=== PATIENT | female | born 2000 | race Caucasian/White ===

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

== ENCOUNTER 2023-06-04 23:42 | Emergency (ER) | payer OTHER, SELFPAY ==
[2023-06-04 23:48] VITALS: BP 121/69; PULSE 62; RESP 18; TEMP 36.6; O2SAT 98; BMI 28.6
[2023-06-05 01:58] VITALS: BP 110/63; PULSE 59; RESP 16; TEMP 36.7; O2SAT 100
--- NOTE | 2023-06-05 02:17 | ED_ITS ---
HPI - General Adult General Chief complaint: General Medical Stated complaint: Swoller lip due to piercing Time Seen by Provider: 06/05/23 02:17 Source: patient Mode of arrival: ambulatory Limitations: no limitations History of Present Illness HPI narrative: 22-year-old female who presents emergency department for evaluation of swelling of her upper lip. The patient had a upper lip piercing 2 weeks prior. She s tates that she has noted crusting around the inner lip insertion point. She states that today the lip became more swollen and she was unable to remove the piercing therefore she came to emergency department for evaluate. The patient states that she has not been ill in any other way. She denied fever, chills, shortness of breath, nausea, vomiting, difficulty swallowing. Related Data Previous Rx's Medication Instructions Recorded cephalexin 500 mg capsule 500 mg PO TID 7 days #21 caps 06/05/23 prednisone 20 mg tablet 60 mg (3 x 20 mg) PO DAILY 5 days 06/05/23 #15 tabs Allergies Allergy/AdvReac Type Severity Reaction Status Date / Time No Known Allergies Allergy Verified 06/04/23 23:51 Review of Systems Review of Systems: Yes all other systems are reviewed and are negative [facility] Past Medical History Attestation statement: The following information was validated with the patient. Physical Exam ED Vital Signs: Vital Signs - 24 hr 06/04/23 23:48 06/05/23 01:58 Temperature 98 F 98.0 F Pulse Rate 62 59 Respiratory Rate 18 16 Blood Pressure 121/69 110/63 Pulse Oximetry 98 100 Oxygen Delivery Method Room Air Room Air BMI result Body Mass Index 28.6 Vital signs were normal Exam General: Awake, alert in no distress Head: Normocephalic, atraumatic EENT: Patient's upper lip is swollen, there is a midline lip piercing but the inner lip portion is imbedded in the lip in cannot be visualized. Neck: Supple, no adenopathy, no trachea midline or C-spine tenderness Psych: Pleasant, very anxious, and tearful Medications Administered Discontinued Medications Generic Name Dose Route Start Last Admin Trade Name Freq PRN Reason Stop Dose Admin Lidocaine HCl 5 ml 06/05/23 02:20 06/05/23 02:44 Lidocaine Hcl 1 % Mpf 5 Ml Vial INFILTRATI 06/05/23 02:21 5 ml ONCE STA Administration Procedures Procedure Narrative Procedure Narrative: Upper lip piercing removal I did discuss the procedure with the patient she informed verbal consent to proceed. The inner lip insertion site was anesthetized with 1% lidocaine x3 cc. The inner lip piercing component was grasped with hemostats 10 the outer lip was grasped with a needle santoyo. I was able to untwist to the piercing and remove it without any difficulty. There is no purulent drainage. The patient tolerated the procedure well pain Medical Decision Making Medical Decision Making MDM Narrative: 22-year-old female who presents emergency department for evaluation of upper lip swelling secondary to a piercing that occurred 2 weeks prior, the swelling got worse prior to coming to emergency department. The patient had no systemic symptoms. The inner upper lip needed to be anesthetized that I could grasp the piercing components and removed the piercing. There was no purulent drainage. The patient will be treated with Keflex 500 mg 3 times a day for 7 days for infection, prednisone 60 mg once a day for 5 days for possible allergic reaction and Benadryl 25 mg every 6 hours as needed for itchiness. Patient was given printed and verbal instructions and discharged home Differential Diagnosis Differential Diagnoses: The differential diagnosis associated with the presentation includes Differential diagnosis includes was not limited to allergic reaction, infectious process Discharge Plan Discharge Clinical Impression: Swelling of upper lip Patient Disposition: Home, Self-Care Additional Instructions: The swelling of your upper lip is most likely caused by an allergic reaction to the piercing however an infection also needs be considered Take Keflex (cephalexin) 500 mg pills, 1 pill 3 times a day for 7 days. Take prednisone 20 mg pills, 3 pills once a day for 5 days. While you are taking prednisone, do not take any NSAIDs (Motrin, Advil, ibuprofen, Aleve, naproxen). You can also take Benadryl 25 mg pills, 1 pill 3 times a day to help reduce the swelling however this medication will make you sleepy, you cannot drive or work while your taking this medication. Please return to the emergency department if the lip is getting more swollen, if you developed fever, chills, the have any difficulty swallowing or breathing Follow-up with your doctor in 2 days. Please return to the emergency department if your symptoms get worse or if you develop any symptoms that are concerning to you. Prescriptions: New prednisone 20 mg tablet 60 mg PO DAILY 5 Days Qty: 15 0RF cephalexin 500 mg capsule 500 mg PO TID 7 Days Qty: 21 0RF
--- NOTE | 2023-06-05 02:25 | PC.NURSE ---
pt reported worsening lip swelling. iv established. Dr. Ross at bedside.
[2023-06-05] MEDS: Lidocaine HCl 1 % MPF 5 ML VIAL INFILTRATI (02:44)
--- OUTSIDE RECORDS SUMMARY | 2023-06-05 03:17 | XMS_ITS | Continuity of Care Document ---
Author Name Unknown Organization [facility] Address [address] [place] [address]- Care Team Providers Care Instant Powder Supervisor Name Role Phone Gloria Drake MD, V Primary Care Physician [phone] Encounter [facility] [place] Date(s): 01/27/23 - 02/03/23 [facility] [address] [place], [place] [address] Encounter Diagnosis Major depressive disorder, recurrent, moderate(Discharge Diagnosis) - 01/27/23 Attending Physician: Gloria Drake MD, V Allergies, Adverse Reactions, Alerts No Known Allergies Immunizations Given and Recorded Vaccine Date Status Refusal Reason Measles/Mumps/Rubella Virus Vaccine 1 01/05/04 Giv en Haemophilus B Conj Vaccine (oldterm) 2 01/05/04 Gi mary jo Haemophilus B Conj Vaccine (oldterm) 3 05/18/03 Gi mary jo Haemophilus B Conj Vaccine (oldterm) 4 01/30/03 Gi mary jo Haemophilus B Conj Vaccine (oldterm) 5 02 Gi mary jo diphtheria/tetanus/pertussis, acel(DTaP) 6 01/05/04 Given diphtheria/tetanus/pertussis, acel(DTaP) 7 05/18/03 Given diphtheria/tetanus/pertussis, acel(DTaP) 8 01/30/03 Given diphtheria/tetanus/pertussis, acel(DTaP) 9 02 Given Varicella Virus Vaccine 10 10/09/03 Given Hepatitis B Vaccine (old term) 11 10/09/03 Given Hepatitis B Vaccine (old term) 12 02 Given Hepatitis B Vaccine (old term) 13 02 Given Poliovirus Vaccine, Inactivated 14 10/09/03 Given Poliovirus Vaccine, Inactivated 15 01/30/03 Given Poliovirus Vaccine, Inactivated 16 02 Given Pneumococcal Conjugate (PCV7) (oldterm) 17 05/18/03 Given Pneumococcal Conjugate (PCV7) (oldterm) 18 01/30/03 Given Pneumococcal Conjugate (PCV7) (oldterm) 19 02 Given 1Admin Note: MMR 2Admin Note: HIB 3Admin Note: HIB 4Admin Note: HIB 5Admin Note: HIB 6Admin Note: DTAP 7Admin Note: DTAP 8Admin Note: DTAP 9Admin Note: DTAP 10Admin Note: BEENA 11Admin Note: HEP B 12Admin Note: HEP B 13Admin Note: HEP B 14Admin Note: IPV/OPV 15Admin Note: IPV/OPV 16Admin Note: IPV/OPV 17Admin Note: PCV7 18Admin Note: PCV7 19Admin Note: PCV7 Medications escitalopram 10 mg oral tablet 1 tablet = 10 mg, By Mouth, Daily, # 30 tablet, 2 Refills, Maintenance, 01/27/23 14:56:00 EDT, Tablet, [facility], Partial fill upon patient request if the prescription is for a schedule II opioid drug., 173, cm, 11/24/21 20:14:00 EDT, H... Start Date: 01/27/23 Status: Ordered Sprintec 0.25 mg-35 mcg oral tablet 1 tablet, By Mouth, Daily, # 28 tablet, 0 Refills, Maintenance, 09/17/22 12:51:00 EST, Tablet, Partial fill upon patient request if the prescription is for a schedule II opioid drug. Start Date: 09/17/22 Status: Ordered triamcinolone 0.1% topical ointment See Instructions, 454 Gm, APPLY TOPICALLY TWO TIMES A DAY apply a thin film to affected area, # 454Gm, 3 Refills, Maintenance, 01/05/23 18:24:00 EDT, Ointment, [facility], Partial fill upon patient request if the prescription is for a... Start Date: 01/05/23 Status: Ordered Problem List Condition Confirmation Course Effective Dates Status Health St atus Informant Eczema Confirmed Active Establishing care with new doctor, encounter for Confirmed Active Major depression, chronic Confirmed Active Diagnosis Diagnosis Type Effective Dates Health Status Clinical Service Informant Major depressive disorder, recurrent, moderate Discharge Diagnosis 7/11/23 Social History Social History Type Response Smoking Status Never smoker; Tobacc o user in household: Yes entered on: 09/15/14 Sex Patient Care team information Care Team Personnel Name: Vidal HOANG, Gloria Reynolds Position: [facility] Physician - Primary Care Member Role: PCP Address: Address: [address] [place] [address]- Care Team Related Persons Name: KRYSTEN AYON Address: home [address] [facility] [place] [address] Name: ALICE AYON Address: home [address] [place] [address]
--- OUTSIDE RECORDS SUMMARY | 2023-06-05 03:17 | XMS_ITS | Continuity of Care Document ---
Author Name Unknown Organization [facility] Address [address] [place] [address]- Care Team Providers Care Shift Engineer Name Role Phone Vidal HOANG, Gloria Reynolds Primary Care Physician Encounter [facility] [place] Date(s): 01/27/23 - 02/26/23 [facility] [address] [place] [address]- Attending Physician: Reji Arredondo Admitting Physician: Reji Arredondo Referring Physician: AdmReji limon Allergies, Adverse Reactions, Alerts No Known Allergies [...] tablet 1 tablet, By Mouth, Daily, # 84 tablet, 3 Refills, Maintenance, 02/06/23 10:50:00 EDT, Tablet, [facility], Partial fill upon patient request if the prescription is for a schedule IIopioid drug., 1 tablet By Mouth Daily, 173, cm, 2... Start Date: 02/06/23 Stop Date: 03/06/23 Status: Ordered triamcinolone 0.1% topical ointment See [...] Confirmed Active Major depression, chronic Confirmed Active Social History Social History Type Response Smoking Status Never smoker; Tobacc o user in household: Yes entered on: 09/15/14 Sex Patient Care team information Care Team Personnel Name: Vidal HOANG, Gloria Reynolds Position: [facility] Physician - Primary Care Member Role: PCP Address: Address: [address] [place] [address]- Care Team Related Persons Name: KRYSTEN AYON Address: home [address] [place] [address] Name: ALICE AYON Address: home [address] [place] [address]
--- OUTSIDE RECORDS SUMMARY | 2023-06-05 03:17 | XMS_ITS | Continuity of Care Document ---
Author Name Unknown Organization [facility] Address [address] [place] [address]- Care Team Providers Care Professor Of Education Name Role Phone Gloria Drake MD, V Primary Care Physician Encounter [facility] [place] Date(s): 10/05/22 - 11/04/22 [facility] [address] [place] [address]- Encounter Diagnosis Eczema(Discharge Diagnosis) - 10/21/22 Allergies, Adverse Reactions, Alerts No Known Allergies [...] 18Admin Note: PCV7 19Admin Note: PCV7 Medications Sprintec 0.25 mg-35 mcg oral tablet 1 tablet, By Mouth, Daily, # 28 tablet, 0 Refills, Maintenance, 09/17/22 12:51:00 EST, Tablet, Partial fill upon patient request if the prescription is for a schedule II opioid drug. Start Date: 09/17/22 Status: Ordered triamcinolone 0.025% topical cream 1 application, Topically, 2 times a day, for 14 days, apply a thin film to affected area twice a day for 14 days, then continue only as needed., # 60 Gm, 3 Refills, Acute 11/12/22 12:44:00 EDT, 09/17/22 12:44:00 EST, Cream, [facility], P... Start Date: 09/17/22 Stop Date: 11/12/22 Status: Ordered triamcinolone 0.1% topical ointment See Instructions, 454 Gm, APPLY TOPICALLY TWO TIMES A DAY apply a thin film to affected area, # 454Gm, 0 Refills, Maintenance, 10/21/22 12:35:00 EDT, Ointment, [facility], Partial fill upon patient request if the prescription is for a... Start Date: 10/21/22 Stop Date: 11/11/22 Status: Ordered Problem List Condition Confirmation Course Effective Dates Status Health atus Informant Eczema Confirmed Active Establishing care with new doctor, encounter for Confirmed Active Diagnosis Diagnosis Type Effective Dates Health Status Clini ivanna Service Informant Eczema Discharge Diagnosis 4/4/23 Non-Specified Social History Social History Type Response Smoking Status Never smoker; Tobacc o user in household: Yes entered on: 09/15/14 Sex Patient Care team information Care Team Personnel Name: Vidal HOANG, Gloria Reynolds Position: [facility] Physician - Primary Care Member Role: PCP Address: Address: [address] [place] [address]- Care Team Related Persons Name: KRSYTEN AYON Address: home [address] [facility] [place] [address] Name: ALICE AYON Address: home [address] [place] [address]
--- OUTSIDE RECORDS SUMMARY | 2023-06-05 03:17 | XMS_ITS | Continuity of Care Document ---
Author Name Unknown Organization [facility] Address [address] [facility] [address], [address] [place] [address]- Care Team Providers Care Sales Clerk Name Role Phone Gloria Drake MD, V Primary Care Physician [place] [facility] [place](s): 09/17/22 - 01/09/23 [facility] [place] [facility] [address] [facility] [place] [address]- Attending Physician: Not on Staff, Attending MD Referring Physician: Gloria Drake MD, V Allergies, Adverse [...] List Condition Confirmation Course Effective Dates Status [facility] St atus Informant Eczema Confirmed Active Establishing care with new doctor, encounter for Confirmed Active Social History Social History Type Response Smoking Status Never smoker; Tobacc o user in household: Yes entered on: 09/15/14 Sex Patient Care team information Care Team Personnel Name: Gloria Drake MD, V Position: S Physician - Primary Care Member Role: PCP Address: Address: [address] [place] [address]- Care Team Related Persons Name: AYONKRYSTEN Address: home [address] [address] [place] [address] Name: ALICE AYON Address: home [address] [place] [address]
--- OUTSIDE RECORDS SUMMARY | 2023-06-05 03:17 | XMS_ITS | Continuity of Care Document ---
Author Name Unknown Organization [facility] Address [address] [place] [address]- Care Team Providers Care Digital Campaign Specialist Name Role Phone Gloria Drake MD, V Primary Care Physician Encounter [facility] Date(s): 12/26/22 - 04/25/23 [facility] [address] [place], [place] [address] Attending Physician: Gloria Drake MD, V Allergies, [...] affected area, # 454Gm, 3 Refills, Maintenance, 03/10/23 13:03:00 EDT, Ointment, [facility], Partial fill upon patient request if the prescription is for a... Start Date: 03/10/23 Status: Ordered Problem List Condition Confirmation Course [...] Personnel Name: Vidal HOANG, Gloria Reynolds Position: [facility] Physician - Primary Care Member Role: PCP Address: Address: [address] [place] [address]- Care Team Related Persons Name: KRYSTEN AYON Address: home [address] [facility] [place] [address] Name: ALICE AYON Address: home [address] [place] [address]
--- OUTSIDE RECORDS SUMMARY | 2023-06-05 03:17 | XMS_ITS | Continuity of Care Document ---
Author Name Unknown Organization [facility] Address [address] [place] [address]- Care Team Providers Care Tree Fruit And Nut Crops Farmer Name Role Phone Vidal HOANG, Gloria Reynolds Primary Care Physician Encounter [facility] Date(s): 03/09/23 - 04/08/23 [facility] [address] [place] [address]- Encounter Diagnosis Eczema(Discharge Diagnosis) - 03/10/23 Allergies, Adverse Reactions, Alerts No Known Allergies [...] Clini ivanna Service Informant Eczema Discharge Diagnosis 03/10/23 Non-Specified Social History Social History Type Response Smoking Status Never smoker; Tobacc o user in household: Yes entered on: 09/15/14 Sex Patient Care team information Care Team Personnel Name: Vidal HOANG, Gloria Reynolds Position: S Physician - Primary Care Member Role: PCP Address: Address: [address] [place] [address]- Care Team Related Persons Name: KRYSTEN AYON Address: home [address] [address] Name: ALICE AYON Address: home [address] [place] [address]
--- OUTSIDE RECORDS SUMMARY | 2023-06-05 03:17 | XMS_ITS | Continuity of Care Document ---
Author Name Unknown Organization [facility] Address [address] [place] [address]- Care Team Providers Care Junior Oracle Dba Name Role Phone Vidal HOANG, Gloria Reynolds Primary Care Physician Encounter [facility] [place] Date(s): 03/26/23 - 04/25/23 [facility] [address] [place] [address]- Attending Physician: Reji Arredondo Admitting Physician: Reji [...] Personnel Name: Vidal HOANG, Gloria Reynolds Position: [facility] Physician - Primary Care Member Role: PCP Address: Address: [address] [place] [address]- Care Team Related Persons Name: KRYSTEN AYON Address: home [address] [facility] [address] [place] [address] Name: ALICE AYON Address: home [address] [place] [address]
--- OUTSIDE RECORDS SUMMARY | 2023-06-05 03:18 | XMS_ITS | Continuity of Care Document ---
Author Name Unknown Organization [facility] Address [address] [place] [address]- Care Team Providers Care Press Hand Supervisor Name Role Phone Vidal HOANG, Gloria Reynolds Primary Care Physician Encounter [facility] Date(s): 01/15/23 - 02/14/23 [facility] [address] [place], [place] [address] Allergies, Adverse Reactions, Alerts No Known Allergies [...] 1 tablet By Mouth Daily, 173, cm, ... Start Date: 02/06/23 Stop Date: 03/06/23 Status: [...] Primary Care Member Role: PCP Address: Address: [address] [place] [address]- Care Team Related Persons Name: KRYSTEN AYON Address: home [address] [facility] [address] [facility] [place] [address] Name: ALICE AYON Address: home [address] [place] [address]
--- OUTSIDE RECORDS SUMMARY | 2023-06-05 03:18 | XMS_ITS | Continuity of Care Document ---
Author Name Unknown Organization [facility] Address [address] [place] [address]- Care Team Providers Care Lightning Rod Erector Name Role Phone Danny HOANG, Lesa Primary Care Physician [phone] Encounter [facility] Date(s): 07/01/22 - 07/31/22 [facility] [address] [place], [place] [address] Allergies, Adverse Reactions, Alerts No Known Allergies [...] PCV7 18Admin Note: PCV7 19Admin Note: PCV7 Problem List Condition Confirmation Course Effective Dates Status Health St atus Informant Childhood obesity Confirmed Active Social History Social History Type Response Smoking Status Never smoker; Tobacc o user in household: Yes entered on: 09/15/14 Sex Patient Care team information Care Team Personnel Name: Lesa Delgado MD Position: [facility] General Pediatrics Member Role: PCP Address: Address: [address] [place] [address] [place] [address]- Care Team Related Persons Name: KRYSTEN AYON Address: home [address] [place] [address] Name: ALICE AYON Address: home [address] [place] [address]
--- OUTSIDE RECORDS SUMMARY | 2023-06-05 03:18 | XMS_ITS | Continuity of Care Document ---
Author Name Unknown Organization [facility] Address [address] [place] [address]- Care Team Providers Care Production Cost Estimator Name Role Phone Vidal HOANG, Gloria Reynolds Primary Care Physician Encounter [facility] Date(s): 03/09/23 - 04/08/23 [facility] [address] [place], [place] [address] Allergies, Adverse Reactions, Alerts No Known Allergies Immunizations Given and Recorded Vaccine Date Status Refusal Reason Measles/Mumps/Rubella Virus Vaccine 1 01/05/04 Giv en Haemophilus B Conj Vaccine (oldterm) 2 01/05/04 Gi amry jo Haemophilus B Conj Vaccine (oldterm) 3 [...] Personnel Name: Vidal HOANG, Gloria Reynolds Position: [facility] Physician - Primary Care Member Role: PCP Address: Address: [address] [place] [address]- Care Team Related Persons Name: KRYSTEN AYON Address: home [address] [place] [address] Name: ALICE AYON Address: home [address] [place] [address]
--- OUTSIDE RECORDS SUMMARY | 2023-06-05 03:18 | XMS_ITS | Continuity of Care Document ---
Author Name Unknown Organization [facility] Address [address], [address] [place] [address]- Care Team Providers Care Gas Main Fitter Helper Name Role Phone Vidal HOANG, Gloria Reynolds Primary Care Physician Encounter [facility] [place] Date(s): 12/10/22 - 01/09/23 [facility] [address]th [place] [address]- Attending Physician: Reji Arredondo Admitting Physician: Reji [...] Care Member Role: PCP Address: Address: [address] [place] [address]- Care Team Related Persons Name: KRYSTEN AYON Address: home [address] [place] [address] Name: ALICE AYON Address: home [address] [place] [address]
--- OUTSIDE RECORDS SUMMARY | 2023-06-05 03:18 | XMS_ITS | Continuity of Care Document ---
Author Name Unknown Organization [facility] Address [address] [place] [address]- Care Team Providers Care Tools Administrator Name Role Phone Gloria Drake MD, V Primary Care Physician Encounter [facility] [place] Date(s): 09/17/22 - 09/24/22 [facility] [address] [place] [address]- Encounter Diagnosis Eczema(Discharge Diagnosis) - 09/17/22 Establishing care with new doctor, encounter for(Discharge Diagnosis) - 09/17/22 Attending Physician: Gloria Drake MD, V Allergies, [...] 13 02 Given Poliovirus Vaccine, Inactivated 14 3/22/04 Given Poliovirus Vaccine, Inactivated 15 01/30/03 Given [...] Date: 09/17/22 Stop Date: 11/12/22 Status: Ordered Problem List Condition Confirmation Course Effective Dates Status Health St atus Informant Eczema Confirmed Active Establishing care with new doctor, encounter for Confirmed Active Diagnosis Diagnosis Type Effective Dates Health Status Clinical Service Informant Eczema Discharge Diagnosis 09/17/22 Establishing care with new doctor, encounter for Discharge Diagnosis 09/17/22 Social History Social History Type Response Smoking Status Never smoker; Tobacc o user in household: Yes entered on: 09/15/14 Sex Patient Care team information Care Team Personnel Name: Gloria Drake MD, V Position: S Primary Care Physician Member Role: PCP Address: Address: [address] [place] [address]- Care Team Related Persons Name: KRYSTEN AYON Address: [address] [place] [address] Name: ALICE AYON Address: home [address] [place] [address]
--- OUTSIDE RECORDS SUMMARY | 2023-06-05 03:18 | XMS_ITS | Continuity of Care Document ---
Author Name Unknown Organization [facility] Address [address] [place] [address]- Care Team Providers Care Electrical Products Engineer Name Role Phone Vidal HOANG, Gloria Reynolds Primary Care Physician [phone] Encounter [facility] Date(s): 02/05/23 - 03/07/23 [facility] [address] [place], [place] [address] Allergies, Adverse Reactions, Alerts No Known [...] Personnel Name: Vidal HOANG, Gloria Reynolds Position: [facility] Physician - Primary Care Member Role: PCP Address: Address: [address] [place] [id number]- Care Team Related Persons Name: KRYSTEN AYON Address: home [address] [place] [address] Name: ALICE AYON Address: home [address] [place] [address]
--- OUTSIDE RECORDS SUMMARY | 2023-06-05 03:18 | XMS_ITS | Continuity of Care Document ---
Author Name Unknown Organization 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 [address] [place] [address]- Encounter Diagnosis Eczema(Discharge Diagnosis) - 04/28/23 Allergies, Adverse Reactions, Alerts No Known Allergies [...] Medications escitalopram 10 mg oral tablet 1 tablet, By Mouth, Daily, # 30 tablet, 2 Refills, Maintenance, 04/29/23 8:22:00 EDT, [facility], 173, cm, 11/24/21 20:14:00 EDT, Height, 116.8, kg, 11/24/21 20:14:00 EDT, Dry Weight Start Date: 04/29/23 Status: Ordered Sprintec 0.25 mg-35 mcg oral [...] affected area, # 454Gm, 3 Refills, Maintenance, 04/28/23 8:36:00 EDT, Ointment, [facility], Partial fill upon patient request if the prescription is for a... Start Date: 04/28/23 Status: Ordered Problem List Condition Confirmation Course Effective Dates Status Health St [facility] Informant Eczema Confirmed Active Establishing care with new doctor, encounter for Confirmed Active Major depression, chronic Confirmed Active Diagnosis Diagnosis Type Effective Dates Health Status [facility] Service Informant Eczema Discharge Diagnosis 04/28/23 Non-Specified Social History Social History Type Response Smoking Status Never smoker; Tobacc o user in household: Yes entered on: 09/15/14 Sex Patient Care team information Care Team Personnel Name: Vidal HOANG, Gloria Reynolds Position: [facility] Physician - Primary Care Member Role: PCP Address: Address: [address] [place] [address] [place] Care Team Related Persons Name: KRYSTEN AYON Address: home [address] [place] [address] Name: ALICE AYON Address: home [address] [place] [address]
--- OUTSIDE RECORDS SUMMARY | 2023-06-05 03:18 | XMS_ITS | Continuity of Care Document ---
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 Name Role Phone Vidal HOANG, Gloria Reynolds Primary Care Physician Encounter [facility] Date(s): 01/02/23 - 02/01/23 [facility] [address] [place] [address]- Encounter Diagnosis Eczema(Discharge Diagnosis) - 01/05/23 Allergies, Adverse Reactions, Alerts No Known Allergies [...] Clini [facility] Service Informant Eczema Discharge Diagnosis 01/05/23 Non-Specified Social History Social History Type Response Smoking Status Never smoker; Tobacc o user in household: Yes entered on: 09/15/14 Sex Patient Care team information Care Team Personnel Name: Vidal HOANG, Gloria Reynolds Position: [facility] Physician - Primary Care Member Role: PCP Address: Address: [address] [place] [address]- Care Team Related Persons Name: KRYSTEN AYON Address: home [address] [place] [address] Name: ALICE AYON Address: home [address] [place] [address]
[2023-06-05] MEDS: cephALEXin 500 MG CAPSULE PO (03:24)
[2023-06-05] MEDS: predniSONE 20 MG TABLET 40 MG PO (03:25)
== END 2023-06-05 03:49 | disposition home or self-care (01) ==
PROVIDERS: Emergency Provider Emergency Medicine Emergency Medical Services
DX: S01.531A Puncture wound without foreign body of lip, initial encounter (principal); R22.0 Localized swelling, mass and lump, head; Y28.9XXA Contact with unspecified sharp object, undetermined intent, initial encounter; Y93.9 Activity, unspecified; Y92.9 Unspecified place or not applicable; Y99.9 Unspecified external cause status
CPT/HCPCS: 99282; 99284

== ENCOUNTER → 2024-05-04 04:58 | Outpatient (BNV) | payer OTHER, SELFPAY | PROVIDERS: Emergency Provider Emergency Medicine; PCP Internal Medicine; Visit Provider Internal Medicine | DX: R00.0 Tachycardia, unspecified (principal); R94.31 Abnormal electrocardiogram [ECG] [EKG] | CPT/HCPCS: 93010 ==

== ENCOUNTER 2024-05-04 04:59 | Emergency (ER) | payer OTHER, SELFPAY ==
--- NOTE | 2024-05-04 | ECG_ITS ---
Test Reason : CHEST PAIN Blood Pressure : / mmHG Vent. Rate : 116 BPM Atrial Rate : 116 BPM P-R Int : 132 ms QRS Dur : 096 ms QT Int : 334 ms P-R-T Axes : 081 071 019 degrees QTc Int : 464 ms Sinus tachycardia Nonspecific ST abnormality Abnormal ECG No previous ECGs available Referred By: Generic ED Physician Electronically Signed By:LEA QUACH
--- NOTE | ~2024-05-04 | XR_ITS ---
EXAMINATION: XR CHEST CLINICAL INFORMATION: Cough and shortness of breath. COMPARISON: None available. TECHNIQUE: 2 views of the chest were obtained. FINDINGS: The cardiomediastinal silhouette is within normal limits. There appears to be a small posterior lower lung field opacity overlying the lower thoracic vertebral on the lateral view. There are significant pleural effusions. The bony structures and the soft tissues are unremarkable. XR/XR chest 2V IMPRESSION: Small posterior lower lung field opacity overlying the lower thoracic vertebral on the lateral view. This could represent a developing infiltrate in the appropriate clinical setting. Electronically signed by: Cruzito Boyle MD 05/04/2024 06:22 AM EDT
[2024-05-04 05:08] VITALS: BP 133/83; PULSE 121; RESP 20; TEMP 36.6; O2SAT 92; BMI 44.0
[2024-05-04 05:28] LABS: MANUAL DIFF FLAG NO
[2024-05-04 05:29] LABS: Basophils Percent Auto 0.2 % (0-2); Eosinophils Percent Auto 0.1 % (0-4); Hematocrit 37.8 % (37.0-47.0); Hemoglobin 12.9 g/dl (12.0-16.0); Imm Gran Abs Auto 0.06 X10*3/uL (0.00-0.03); Imm Gran Pct Auto 0.5 % (0.0-0.4); Lymphocytes Absolute Auto 1.7 X10*3/uL (1.2-4.9); Lymphocytes Percent Auto 12.7 % (20-40); Mean Corpuscular HGB Conc 34.1 g/dl (31.0-35.0); Mean Corpuscular Hemoglobin 29.7 pg (27.0-33.0); Mean Corpuscular Volume 86.9 fL (80.0-98.0); Mean Platelet Volume 9.4 fL (9.4-12.3); Monocytes Absolute Auto 0.9 X10*3/uL (0.1-1.2); Monocytes Percent Auto 6.8 % (2-11); Neutrophils Absolute Auto 10.5 x10*3/uL (2.0-8.3); Neutrophils Percent Auto 79.7 % (45-73); Platelet Count 321 X10*3/uL (160-400); Red Blood Count 4.35 X10*6/uL (4.20-5.50); Red Cell Distribution Width 12.8 % (11.0-16.0); White Blood Count 13.2 X10*3/uL (4.8-10.8)
[2024-05-04 05:45] LABS: Alanine Aminotransferase 25 U/L (0-31); Albumin Level 3.5 g/dL (3.5-5.0); Alkaline Phosphatase 97 U/L (39-117); Anion Gap 17 (12-20); Aspartate Amino Transferase 23 U/L (5-31); Bilirubin Total 0.2 mg/dL (0.0-1.0); Blood Urea Nitrogen 6 mg/dL (9-16); Calcium 9.3 mg/dL (8.4-10.2); Carbon Dioxide 21 mmol/L (22-29); Chloride 109 mmol/L (96-108); Creatinine Clr Calc Pharmacy 187.5; Estimated Glomerular Filt Rate > 60; Glucose Random 134 mg/dL (60-115); Potassium 3.3 mmol/L (3.3-5.1); Sodium 144 mmol/L (135-145); Total Protein 6.7 g/dL (6.5-8.0)
[2024-05-04 05:54] LABS: Troponin-I High Sensitivity < 2.7 ng/L (<3.5-17.0)
[2024-05-04] MEDS: Acetaminophen 325 MG TABLET 975 MG PO (06:05)
[2024-05-04 06:18] LABS: Influenza A PCR NEGATIVE (Negative); Influenza B PCR NEGATIVE (Negative); Resp Syncy Virus RNA Qual PCR NEGATIVE (Negative); SARS COV2 PCR INHOUSE NEGATIVE (Negative)
--- NOTE | 2024-05-04 06:25 | ED_ITS ---
HPI - Asthma General Chief Complaint: Asthma Stated Complaint: chest pain, unable to breathe Time Seen by Provider: 05/04/24 05:22 Source: patient and family Mode of arrival: ambulatory Limitations: no limitations History of Present Illness ED Provider: Dr. Sheth HPI Narrative: Patient was seen twice in Urgent care. Initially was told she had strep throat and was started on PCN. She then developed chest pain and did not improve, she went back to the and was told to go to the hospital. She went to [facility] waited for 10 hours and then decided to come to [facility]. Patient having pain with coughing and feels tight when breathing. Related Data Previous Rx's ?Medication ?Instructions ?Recorded cephalexin 500 mg capsule 500 mg PO TID 7 days #21 caps 06/05/23 prednisone 20 mg tablet 60 mg (3 x 20 mg) PO DAILY 5 days 06/05/23 #15 tabs albuterol sulfate 90 mcg/actuation 2 puff inhalation Q4-6H PRN 05/04/24 aerosol inhaler shortness of breath or wheezing #8.5 grams azithromycin 250 mg tablet 250 mg PO DAILY 4 days #4 tabs 05/04/24 Allergies Allergy/AdvReac Type Severity Reaction Status Date / Time No Known Allergies Allergy Verified 05/04/24 05:14 Review of Systems 2 Review of Systems: Yes all other systems are reviewed and are negative Neurologic: Denies Sensory deficit (Neuro) [facility] Social History Social History Smoked in Last 30 Days: Yes Use of substances other than those prescribed or required for medical reasons: Yes Substance Use Type: Marijuana Substance Use Frequency: Chronic Longstanding Advance Directives: No Patient : No Physical Exam 2 Vital Signs: Vital Signs: Last Vital Signs Temp 97.8 F 05/04/24 05:08 Pulse 121 H 05/04/24 05:08 Resp 20 05/04/24 05:08 BP 133/83 05/04/24 05:08 Pulse Ox 92 05/04/24 05:08 O2 Del Method Room Air 05/04/24 05:08 BMI result Body Mass Index 44.0 Const: Other: anxious obese female, crying Nutritional Appearance: obese Orientation/consciousness: oriented to person and patient oriented x3 Limitations: no limitations HEENT: Head: Yes normal to inspection Ears: external ears normal General nose exam: Normal external nose present Mouth: Normal oral and palatal mucosa present and oropharynx normal Throat: Yes posterior oropharynx normal Eyes: General: appearance normal, both eyes and all related structures Neck: Other: supple Neck: Yes normal visual inspection Chest: Chest palpation & inspection: normal inspection of the chest Resp: Other: rales in left lung Cardio: Jugular venous distension: no JVD Rate: regular rate Rhythm: r egular rhythm Heart sounds: S1 normal heart sound present and S2 normal heart sound present GI: Inspection: Yes normal to inspection Palpation (GI): Soft to palpation, nontender and No hepatosplenomegaly present Auscultation: normal bowel sounds : General: Yes no CVA tenderness Back/Spine/Pelvis: Back: no CVA tenderness Skin: General skin exam: no rashes or lesions noted Neuro: General: oriented to person and patient oriented x3 Cranial nerves: Yes CN's II-XII intact bilaterally Motor exam (neuro): 5/5 motor strength present throughout Sensory Exam: No Sensory deficit (Neuro) Extrem: General: Yes normal to inspection Psych: Appearance: grossly normal Course Reevaluation(s) Reevaluation #1: Patient stable but has a left sided pneumonia, will continue Penicillin but add azithromycin Time: 06:36 Medications Administered Discontinued Medications Generic Name Dose Route Start Last Admin Trade Name Freq PRN Reason Stop Dose Admin Acetaminophen 975 mg 05/04/24 06:02 05/04/24 06:05 Acetaminophen 325 Mg Tablet PO 05/04/24 06:03 975 mg ONCE ONE Administration Medical Decision Making Differential Diagnosis Differential Diagnoses: The differential diagnosis associated with the presentation includes (pneumonia, pericarditis, asthma) Admission/Observation Consideration of admission/observation: Escalation of care including admission/observation considered (upon arrival patient considered for admission) Lab Data 05/04/24 05:24 05/04/24 05:24 Labs: Lab Results 05/04/24 05/04/24 Range/Units 05:24 05:36 WBC 13.2 H (4.8-10.8) X10*3/uL RBC 4.35 (4.20-5.50) X10*6/uL Hgb 12.9 (12.0-16.0) g/dl Hct 37.8 (37.0-47.0) % MCV 86.9 (80.0-98.0) fL MCH 29.7 (27.0-33.0) pg MCHC 34.1 (31.0-35.0) g/dl RDW 12.8 (11.0-16.0) % Plt Count 321 (160-400) X10*3/uL MPV 9.4 (9.4-12.3) fL Immature Gran % (Auto) 0.5 H (0.0-0.4) % Neut % (Auto) 79.7 H (45-73) % Lymph % (Auto) 12.7 L (20-40) % [place] % (Auto) 6.8 (2-11) % Eos % (Auto) 0.1 (0-4) % Baso % (Auto) 0.2 (0-2) % Lymph # (Auto) 1.7 (1.2-4.9) X10*3/uL [place] # (Auto) 0.9 (0.1-1.2) X10*3/uL Eos # (Auto) 0.0 (0.0-0.4) X10*3/uL Baso # (Auto) 0.0 (0.0-0.2) X10*3/uL Abs Immat Gran (auto) 0.06 H (0.00-0.03) X10*3/uL Absolute Neuts (auto) 10.5 H (2.0-8.3) x10*3/uL Absolute Nucleated RBC 0.000 (0.0-0.012) X10*3/uL Nucleated RBC % (auto) 0.0 (0.0-0.2) /100WBC Sodium 144 (135-145) mmol/L Potassium 3.3 (3.3-5.1) mmol/L Chloride 109 H (96-108) mmol/L Carbon Dioxide 21 L (22-29) mmol/L Anion Gap 17 (12-20) BUN 6 L (9-16) mg/dL Creatinine 0.68 (0.5-1.4) mg/dL Estim Creat Clear Calc 187.5 Estimated GFR > 60 Random Glucose 134 H (60-115) mg/dL Calcium 9.3 (8.4-10.2) mg/dL Total Bilirubin 0.2 (0.0-1.0) mg/dL AST 23 (5-31) U/L ALT 25 (0-31) U/L Alkaline Phosphatase 97 (39-117) U/L Troponin I High Sens < 2.7 (<3.5-17.0) ng/L Total Protein 6.7 (6.5-8.0) g/dL Albumin 3.5 (3.5-5.0) g/dL Influenza Type A (PCR) NEGATIVE (Negative) Influenza Type B (PCR) NEGATIVE (Negative) RSV RNA Qual (PCR) NEGATIVE (Negative) SARS-CoV-2 RNA (RT-PCR) NEGATIVE (Negative) Independent Interpretation I performed an independent interpretation of an: EKG (sinus tachycardia rate 116, no st or twave changes) and Plain X-Ray (CXR: left lower lobe infiltrate) Independent Historian Clinical information obtained from an independent historian. History obtained from or confirmed by: Parent Discharge Plan Discharge Clinical Impression: Pneumonia Patient Disposition: Home, Self-Care Instructions: Pneumonia (ED) Prescriptions: New azithromycin 250 mg tablet 250 mg PO DAILY 4 Days Qty: 4 0RF Rx Instructions: start on day 2 of therapy albuterol sulfate 90 mcg/actuation HFA aerosol inhaler 2 puff inhalation Q4-6H PRN (Reason: shortness of breath or wheezing) Qty: 8.5 0RF No Action prednisone 20 mg tablet 60 mg PO DAILY 5 Days Qty: 15 0RF cephalexin 500 mg capsule 500 mg PO TID 7 Days Qty: 21 0RF Referrals: Gloria Drake MD [Primary Care Provider] - 5 days Print Language: Serbian
[2024-05-04] MEDS: Azithromycin 500 MG TABLET PO (06:44)
[2024-05-04 06:47] VITALS: BP 133/83; PULSE 121; RESP 20; TEMP 36.6; O2SAT 92
== END 2024-05-04 06:48 | disposition home or self-care (01) ==
PROVIDERS: Emergency Provider Emergency Medicine; PCP Internal Medicine
DX: J18.9 Pneumonia, unspecified organism (principal); R07.9 Chest pain, unspecified; Z03.818 Encounter for observation for suspected exposure to other biological agents ruled out; R05.9 Cough, unspecified
CPT/HCPCS: 0241U; 36415; 71046; 80053; 84484; 85025; 93005; 99283; 99285